=== PATIENT | male | born 1990 | race Caucasian/White ===

== ENCOUNTER 2016-09-12 00:48 | Emergency (ER) | payer SELFPAY ==
[2016-09-12] MEDS ORDERED: CEPHALEXIN 500 MG CAPSULE ONE (01:38)
[2016-09-12] MEDS ORDERED: IBUPROFEN 800 MG TABLET ONE (01:38)
[2016-09-12] MEDS ORDERED: HYDROCODONE/ACETAMINOPHEN 5/325MG TABLET ONE (01:39)
== END 2016-09-12 01:55 | disposition home or self-care (01) ==
LOC: ED 00:48
DX: L02.212 Cutaneous abscess of back [any part, except buttock and flank] (principal)
CPT/HCPCS: 99283 ×2; A9270 ×3